=== PATIENT | male | born 1990 | race Two or more races ===

== ENCOUNTER 2019-05-13 19:05 | Emergency (ER) | payer OTHER ==
[~2019-05-13] VITALS: Ht 177.8 cm; Wt 63.5 kg
--- NOTE | 2019-05-13 19:10 | NUR ---
PATIENT DROPPED OFF BY PRIVATE CAR FOR C/O NOT WAKING UP. ACCRODING TO SCHEDULING SPECIALIST OF THE CAR, PATIENT PARTIED LAST NIGHT, UNABLE TO PROVIDE MORE INFORMATION. PLACED PATIENT ON GURNEY, RESPONDS TO PAINFUL STIMULI. VSS AT THIS TIME. C-COLLAR PLACED. WILL MONITOR.
[2019-05-13] MEDS ORDERED: IV NORMAL SALINE 1000 ML BAG IV ONE (19:15)
[2019-05-13] MEDS ORDERED: HALOPERIDOL LACTATE 5 MG/1 ML VIAL ONE (19:21)
[2019-05-13 19:27] LABS: BASOPHILS % (AUTO) 0.1 % (0.0-2.0); EOSINOPHILS % (AUTO) 0.1 % (0.0-7.0); HEMATOCRIT 49.3 % (36.7-47.1); HEMOGLOBIN 16.6 g/dL (12.5-16.3); LYMPHOCYTES # (AUTO) 1.1 K/uL (20.0-40.0); LYMPHOCYTES % (AUTO) 5.4 % (20.5-51.5); MEAN CORPUSCULAR HEMOGLOBIN 28.5 uug (23.8-33.4); MEAN CORPUSCULAR HGB CONC 34 g/dL (32.5-36.3); MEAN CORPUSCULAR VOLUME 84.5 fL (73.0-96.2); MONOCYTES % (AUTO) 4.9 % (0.0-11.0); NEUTROPHILS # (AUTO) 17.8 K/uL (1.8-8.9); NEUTROPHILS % (AUTO) 89.5 % (38.5-71.5); PLATELET COUNT (AUTO) 278 K/uL (152-348); RED BLOOD CELL COUNT(AUTO) 5.83 MIL/uL (4.06-5.63); WHITE BLOOD COUNT (AUTO) 19.9 K/uL (3.6-10.2)
[2019-05-13] MEDS ORDERED: HALOPERIDOL LACTATE 5 MG/1 ML VIAL IM ONE (19:30)
[2019-05-13 19:37] LABS: CARBON DIOXIDE 26 mmol/L (21-32); CHLORIDE 105 mmol/L (98-107); GLUCOSE 126 mg/dL (74-106); POTASSIUM 4.3 mmol/L (3.5-5.1); UREA NITROGEN, BLOOD 9 mg/dL (7-18)
[2019-05-13 19:41] LABS: ALANINE AMINOTRANSFERASE 23 U/L (16-63); ALKALINE PHOSPHATASE 72 U/L (50-136); ASPARTATE AMINOTRANSFERASE 14 U/L (15-37); BILIRUBIN,DIRECT 0.2 mg/dL (0.0-0.2); BILIRUBIN,TOTAL 0.8 mg/dL (0.2-1.0); TOTAL PROTEIN, SERUM 7.3 g/dL (6.4-8.2)
[2019-05-13 19:42] LABS: ETHANOL < 3 MG/DL (0-0)
[2019-05-13 19:43] LABS: ACETAMINOPHEN < 2.0 ug/mL (10-30)
[2019-05-13 19:51] LABS: THYROID STIMULATING HORMONE 0.709 mIU/mL (0.358-3.740)
[2019-05-13 20:14] LABS: *BILIRUBIN,URIN NEGATIVE (NEGATIVE); *CLARITY,URINE CLEAR (CLEAR); *COLOR,URINE YELLOW (YELLOW); *KETONES,URINE 1+ (NEGATIVE); *UROBILINOGEN,URINE 0.2 E.U./dl (NORMAL); LEUKOCYTE ESTERASE ,URINE NEGATIVE (NEGATIVE); NITRITE, URINE NEGATIVE (NEGATIVE); PH,URINE 5.5 (5.0-8.0); UGLUCOSE NEGATIVE (NEGATIVE)
--- NOTE | 2019-05-13 20:14 | NUR ---
C-COLLAR REMOVED PER DR. EWING.
[2019-05-13 20:22] LABS: *BLOOD, URINE TRACE (NEGATIVE); RBC,URINE 0-3 /HPF (0-3); WBC,URINE 0-3 /HPF (0-3)
[2019-05-13 20:26] LABS: *AMPHETAMINE, URINE POSITIVE (NEGATIVE); *BARBITURATE, URINE NEGATIVE (NEGATIVE); *CANNABINOID, URINE NEGATIVE (NEGATIVE); *COCCAINE, URINE NEGATIVE (NEGATIVE); *OPIATE, URINE NEGATIVE (NEGATIVE); *PHENCYCLIDINE SCREEN,URINE NEGATIVE (NEGATIVE)
--- NOTE | 2019-05-13 23:45 | NUR ---
PATIENT IS AWAKE AT THIS TIME, A/O X3, RESTRAINTS REMOVED, F/C REMOVED, SALINE LOCK DISCONTINUED CAHTETER INTACT.
--- NOTE | 2019-05-14 01:08 | NUR ---
Patient discharged to home in stable conditon. Written and verbal after care instructions given. Patient verbalizes understanding of instructions. PATIENT LEFT WITH STABLE GAIT.
[2019-05-14 01:09] VITALS: BP 114/64
== END 2019-05-14 01:09 | disposition home or self-care (01) ==
LOC: ER 19:09
DX: S00.83XA Contusion of other part of head, initial encounter (principal); R40.20 Unspecified coma; R41.0 Disorientation, unspecified; F15.10 Other stimulant abuse, uncomplicated; E72.81 Disorders of gamma aminobutyric acid metabolism; X58.XXXA Exposure to other specified factors, initial encounter; Y93.89 Activity, other specified; Y92.89 Other specified places as the place of occurrence of the external cause; Y99.8 Other external cause status
CPT/HCPCS: 36415; 70450; 71045; 72125; 80048; 80076; 80307; 81000; 81001; 84443; 85025; 85730; 93005; 96360; 96372; 99284; G0480 ×2; G0481; J1630; A4663; J7030